=== PATIENT | male | born 1940 | race Caucasian/White ===

== ENCOUNTER 2018-03-13 15:00 | Emergency (ER) | payer MEDICARE ==
[~2018-03-13] VITALS: Ht 182.9 cm; Wt 97.6 kg
[~2018-03-13 15:00] MED LIST: ALBU8.5H8 INH; LISI-170 PO; LISI1TAB7 PO; TIOT18CA INH
[2018-03-13] MEDS ORDERED: SODIUM CHLORIDE FLUSH 10ML SYR IVF ONE (16:00)
[2018-03-13 16:01] LABS: BASOPHILS # (AUTO) 0.03 x10^3/uL (0-0.1); BASOPHILS % (AUTO) 0 % (0-1); EOSINOPHILS # (AUTO) 0.11 x10^3/uL (0-0.4); EOSINOPHILS % (AUTO) 1 % (1-7); LYMPHOCYTES # (AUTO) 2.39 x10^3/uL (1-3.4); LYMPHOCYTES % (AUTO) 22 % (22-44); MD NO; MEAN CORPUSCULAR HEMOGLOBIN 31.1 pg (27.5-34.5); MEAN CORPUSCULAR VOLUME 94.4 fL (81-97); MONOCYTES # (AUTO) 1.14 x10^3/uL (0.2-0.8); MONOCYTES % (AUTO) 11 % (2-9); NEUTROPHILS # (AUTO) 7.24 x10^3/uL (1.8-6.8); NEUTROPHILS % (AUTO) 66 % (42-75); PLATELET COUNT 357 x10^3/uL (130-400); RED BLOOD COUNT 4.74 x10^6/uL (4.38-5.82); RED CELL DISTRIBUTION WIDTH 14.3 % (9.4-14.8)
[2018-03-13 16:07] LABS: ALBUMIN 3.7 g/dL (3.4-5.0); ANION GAP 6 mmol/L (5-15); CALCIUM 9.1 mg/dL (8.5-10.1); CHLORIDE 98 mmol/L (98-107)
[2018-03-13 16:10] LABS: ALANINE AMINOTRANSFERASE 41 U/L (12-78); ALKALINE PHOSPHATASE 134 U/L (45-117); BILIRUBIN,TOTAL 0.6 mg/dL (0.2-1.0); CREATININE 1.03 mg/dL (0.7-1.3); TOTAL PROTEIN 8.4 g/dL (6.4-8.2)
--- NOTE | 2018-03-13 17:36 | NUR ---
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
--- NOTE | 2018-03-13 19:00 | NUR ---
URINE COLLECTED/SENT TO LAB. PT STATES PAIN 0/10 AT THIS TIME, STATES UP TO 9/10 EARLIER TODAY CONCENTRATED IN RUQ AND R FLANK. PMH REVIEWED WITH PT, MED REC COMPLETED. AWAITING UA RESULTS. WARM BLANKET OFFERED, CALL LIGHT WITHIN REACH.
[2018-03-13 19:14] VITALS: BP 171/87
[2018-03-13 19:30] LABS: MICROSCOPIC NOT IND
[2018-03-13 19:34] LABS: CULTURE INDICATED? NO
--- NOTE | 2018-03-13 19:38 | NUR ---
ALL RESULTS BACK, PT FOR RECHECK.
[2018-03-13 20:14] LABS: INTERNATIONAL NORMALIZED RATIO 1.02 (0.93-1.1); PROTHROMBIN TIME 10.8 Seconds (9.6-11.5)
== END 2018-03-13 21:31 | disposition home or self-care (01) ==
LOC: ED 17:51
DX: R10.11 Right upper quadrant pain (principal); C78.7 Secondary malignant neoplasm of liver and intrahepatic bile duct; C34.90 Malignant neoplasm of unspecified part of unspecified bronchus or lung; I10 Essential (primary) hypertension
CPT/HCPCS: 36415; 74022; 74177; 80053; 81003; 83690; 85025; 85610; 85730; 99284

== ENCOUNTER 2018-04-15 11:04 | Inpatient (IN) | payer OTHER ==
[~2018-04-15] VITALS: Ht 190.5 cm; Wt 96.9 kg
[~2018-04-15 11:04] MED LIST changes: +ALBU90AE INH
[2018-04-15] MEDS ORDERED: SODIUM CHLORIDE 0.9% 1,000 ML IV SCH (13:03)
[2018-04-15] MEDS ORDERED: SCOPOLAMINE PATCH, 1.5MG PATCH.TD72 TD SCH (13:30)
[2018-04-15] MEDS ORDERED: MORPHINE SULFATE 4 MG/ML, 1ML IVPush PRN ×2 (13:30)
[2018-04-15] MEDS ORDERED: HALOPERIDOL 5 MG/ML IVPush PRN (13:30)
[2018-04-15] MEDS ORDERED: LORazepam 2 MG/ML, 1ML IVPush PRN (13:30)
[2018-04-15] MEDS ORDERED: HALOPERIDOL 0.5 MG TABLET PO PRN (13:30)
[2018-04-15] MEDS ORDERED: ATROPINE OPHTH SOLN 1%, 5ML BC PRN (13:30)
[2018-04-15] MEDS ORDERED: LORazepam 2 MG/ML, 1ML ONE (13:54)
[2018-04-15] MEDS ORDERED: HALOPERIDOL 5 MG/ML IM PRN (14:00)
[2018-04-15] MEDS ORDERED: PLEASE ENTER HEIGHT AND WEIGHT MC SCH ×2 (14:00→15:00)
[2018-04-15] MEDS ORDERED: HALOPERIDOL 2 MG/ML ORAL SOL PO PRN (15:57)
[2018-04-15] MEDS: MORPHINE SULFATE 4 MG/ML, 1ML IVPush PRN (21:34)
[2018-04-16] MEDS: MORPHINE SULFATE 4 MG/ML, 1ML IVPush PRN (04:15)
[2018-04-16] MEDS ORDERED: LORazepam 2 MG/ML, 1ML IVPush SCH (09:30)
== END 2018-04-16 15:27 | disposition expired | DRG 871 ==
LOC: 3NW 11:04
PROVIDERS: ADMIT Internal Medicine; ATTEND Internal Medicine
DX: A41.9 Sepsis, unspecified organism (principal); G93.41 Metabolic encephalopathy; K72.00 Acute and subacute hepatic failure without coma; N17.9 Acute kidney failure, unspecified; C34.90 Malignant neoplasm of unspecified part of unspecified bronchus or lung; D63.8 Anemia in other chronic diseases classified elsewhere; E88.09 Other disorders of plasma-protein metabolism, not elsewhere classified; F41.9 Anxiety disorder, unspecified; I10 Essential (primary) hypertension; J44.9 Chronic obstructive pulmonary disease, unspecified; K80.20 Calculus of gallbladder without cholecystitis without obstruction; Z66 Do not resuscitate; Z85.118 Personal history of other malignant neoplasm of bronchus and lung; Z87.891 Personal history of nicotine dependence; Z92.21 Personal history of antineoplastic chemotherapy; Z92.3 Personal history of irradiation
CPT/HCPCS: G0378; J2270; J2060